=== PATIENT | male | born 1975 ===

== ENCOUNTER → 2017-05-08 | Outpatient (CLI) | payer BC ==
--- NOTE | 2017-05-08 16:47 | RAD ---
Indication abnormal liver function tests. Grayscale images were obtained. The examination was targeted to the right upper quadrant. The head and body of the pancreas were partially visualized. No abnormality was seen in that portion of the pancreas which was visualized. The tail was largely obscured. The most proximal abdominal aorta similarly was obscured. The mid and distal abdominal aorta appeared normal. That portion of the inferior vena cava which was seen appeared normal but it too was partially obscured. There is increased attenuation of the ultrasound beam by the liver compatible with fatty infiltration. A focal mass lesion in the visualized liver is not seen. The gallbladder appeared normal. The right kidney appeared unremarkable. No intrahepatic bile duct dilatation was seen. The common bile duct diameter of approximately 5 mm is within normal IMPRESSION: Fatty infiltration of the liver. Midline structures partially obscured.
== END | disposition home or self-care (01) ==
LOC: US 14:17
PROVIDERS: ATTEND Family Medicine
DX: K76.0 Fatty (change of) liver, not elsewhere classified (principal); R79.89 Other specified abnormal findings of blood chemistry
CPT/HCPCS: 76705